=== PATIENT | male | born 1960 | race Caucasian/White ===

== ENCOUNTER 2016-10-30 08:25 | Day surgery (SDC) | payer OTHER ==
[2016-10-22 07:52] LABS: BASOPHILS 0.9 %; BASOPHILS ABSOLUTE 0.07 10/3/uL (0.0-0.16); EOSINOPHILS ABSOLUTE 0.41 10/3/uL (0.0-0.53); HEMATOCRIT 43.6 % (40.0-51.0); HEMOGLOBIN 14.8 g/dL (13.6-17.8); IMMATURE GRANULOCYTES 0.2 %; IMMATURE GRANULOCYTES ABSOLUTE 0.02 10/3/uL (0.0-0.11); LYMPHOCYTES 31.8 %; LYMPHOCYTES ABSOLUTE 2.59 10/3/uL (0.67-4.30); MEAN CORPUS HGB CONC 33.9 g/dL (32.0-36.0); MEAN CORPUSCULAR VOLUME 85.3 fL (80-100); MEAN PLATELET VOLUME 9.7 fL (9.2-13.0); MONOCYTES 14.4 %; MONOCYTES ABSOLUTE 1.17 10/3/uL (0.21-1.20); NEUTROPHILS 47.7 %; NEUTROPHILS ABSOLUTE 3.88 10/3/uL (2.02-8.40); PLATELET COUNT 354 10/3/uL (150-400); RBC DISTRIBUTION WIDTH 13.3 % (12.0-16.0); RED CELL COUNT 5.11 10/6/uL (4.7-6.1); WHITE BLOOD CELLS 8.1 10/3/uL (4.5-10.5)
[2016-10-22 07:55] LABS: MANUAL DIFF NO %
--- NOTE | ~2016-10-30 | OP ---
Record Of Operation [facility] [address] [place]. [address] NAME: LUNA CHAN : 64 STATUS : REG [facility] PAT#: [id number] AGE: 56 ADM/REG DATE : 10/30/16 MR#: [id number] REPORT SERV DATE: 10/30/16 DICTATED BY: XIN GRAFF DATE: 10/30/16 REPORT STATUS : Draft TRANSCRIBED BY: REMEDIOS DATE: 10/30/16 DATE OF PROCEDURE: 10/30/2016 PREOPERATIVE DIAGNOSES: 1. Reducible umbilical hernia with pain. 2. Factor V Leiden deficiency. 3. Obesity with BMI of 41.1. POSTOPERATIVE DIAGNOSES: 1. Reducible umbilical hernia with pain. 2. Factor V Leiden deficiency. 3. Obesity with BMI of 41.1. PROCEDURE: Robotic reducible umbilical hernia repair with mesh. ANESTHESIA: General. PUBLICATIONS DISTRIBUTION CLERK: Leandra. COMPLICATIONS: None. DRAINS: None. ESTIMATED BLOOD LOSS: Less than 20 mL. FINDINGS: 1. The patient was noted to have a reducible umbilical hernia approximately 2 cm in circumference. 2. The defect was closed primarily robotically and a preperitoneal mesh was placed with reperitonealization. OPERATIVE TECHNIQUE: The patient was brought to the operating room and placed on the table in supine position. He had preoperative IV antibiotics. He had sequential hose in place. He voided prior to the procedure. He underwent general endotracheal anesthesia and was prepped and draped in sterile fashion and a time-out was completed. A left subcostal 8 mm trocar was placed in the midclavicular line after a stab incision was made and a Veress needle was inserted and a water drop test safely performed. A 15 mm of pneumoperitoneum was obtained followed by trocar placement. When the laparoscope was inserted, there was no evidence of Veress or trocar injury. The patient then had an 8 mm robotic left lower quadrant trocar placed in the mid clavicular line as well. Two 12 mm trocars were placed in the lateral left abdomen, one in the mid and one in the upper abdomen under direct visualization. At this point, the patient had the peritoneum scored at the lateral costal margin on the left side. The peritoneal flap was then taken down from the falciform ligament to the pelvis. This dissection continued circumferentially from left to right around the hernia defect. The hernia defect was then reduced en germain with the peritoneum, but remained intact. At this point, the peritoneal flap was then mobilized all the way to Record Of Operation [address] [place]. [address] NAME: LUNA CHAN : 64 STATUS : REG [facility] PAT#: [id number] AGE: 56 ADM/REG DATE : 10/30/16 MR#: [id number] REPORT SERV DATE: 10/30/16 DICTATED BY: XIN GRAFF DATE: 10/30/16 REPORT STATUS : Draft TRANSCRIBED BY: MODL DATE: 10/30/16 the lateral margin of the right rectus muscle. There were no evidence of other hernias. The pneumoperitoneum was then reduced and the umbilical defect was then closed in longitudinal fashion without tension with the 0 V-Loc absorbable suture. The suture was placed approximately 2 cm above caudally and extended cranially for approximately 2-3 cm as well. The Ultrapro mesh was then cut to size, and a 7 x 5 cm mesh was then secured to the anterior abdominal wall with circumferential 2-0 V-Loc Prolene sutures. The peritoneal flap was then reperitonealized using a 2-0 V-Loc suture. There was no mesh exposed at this time. The patient had no evidence of any bleeding or other visual abnormalities, and at this point, the two 12 mm trocars were removed and switched. The suture passer was used to close the fascia at these two sites. The robot was previously undocked and all the instruments were removed. At this point, the pneumoperitoneum was aspirated, and the skin edges were approximated using interrupted subcuticular Monocryl sutures. Dermabond was applied to the skin and the patient was extubated and taken to the recovery room in stable condition. All sponge and needle counts were reported correct. /REMEDIOS Xin Graff M.D. / [id number] CC: Effie Knott M.D.
[~2016-10-30 08:25] MED LIST: ALEVE220 MG PO
== END 2016-10-30 20:20 | disposition home or self-care (01) ==
LOC: SDC 08:25
PROVIDERS: Surgery
PROC: 8E0W8CZ Robotic Assisted Procedure of Trunk Region, Via Natural or Artificial Opening Endoscopic (ICD-10-PCS; 2016-10-30)
PROC: 0WUF4JZ Supplement Abdominal Wall with Synthetic Substitute, Percutaneous Endoscopic Approach (ICD-10-PCS; principal; 2016-10-30 09:30)
DX: K42.9 Umbilical hernia without obstruction or gangrene (principal); E66.9 Obesity, unspecified; D68.51 Activated protein C resistance; Z88.5 Allergy status to narcotic agent; Z88.8 Allergy status to other drugs, medicaments and biological substances; Z98.890 Other specified postprocedural states
CPT/HCPCS: 85025; 87641; 93005; C1781; J0690; J1885; J2250; J2405; J2550; J2710; J3010